=== PATIENT | male | born 1950 | race Caucasian/White ===

== ENCOUNTER → 2016-09-27 | Outpatient (CLI) | payer MEDICARE, OTHER | LOC: RAD 09:22 | PROVIDERS: ATTEND Physician Assistant | DX: R47.02 Dysphasia (principal) | CPT/HCPCS: 74220 ==

== ENCOUNTER 2016-10-18 09:45 | Day surgery (SDC) | payer MEDICARE, OTHER ==
[~2016-10-18 09:45] MED LIST: KETOROLAC TROMETHAMINE 0.45% 4 DROP/0.4 ML DROPERETTE OD PRN
[2016-10-18] MEDS: CYCLOPENTOLATE 0.2%/PHENYLEPHRINE 1% OPH SOLN 2 ML OD PRN ×3 (10:55→11:24)
[2016-10-18] MEDS: TROPICAMIDE 1% OPH SOLN 3 ML OD PRN ×3 (10:56→11:25)
[2016-10-18] MEDS: BESIFLOXACIN HCL 0.6% OPH SUSP 5 ML BOTTLE OD PRN ×3 (10:57→12:01)
[2016-10-18] MEDS: TETRACAINE HCL 0.5% OPH SOLN 2 ML OD PRN ×3 (10:59→11:35)
[2016-10-18] MEDS ORDERED: MIDAZOLAM 2 MG/2 ML INJ ONE (11:09)
[2016-10-18] MEDS ORDERED: FENTANYL CITRATE INJ/PF 100 MCG/2 ML AMPUL ONE (11:09)
[2016-10-18] MEDS ORDERED: EPINEPHRINE INJ/PF 1 MG/1 ML AMPULE ONE (11:09)
[2016-10-18] MEDS ORDERED: LIDOCAINE 1% INJ-PF (10 MG/ML) 30 ML SDV ONE (11:10)
[2016-10-18] MEDS ORDERED: CHONDR SU A NA/HYALUR INTRAOC KIT (SURGICARE) ONE (11:10)
[2016-10-18] MEDS ORDERED: PHENYLEPHRINE/KETOROLAC 1%-0.3% 4 ML VIAL ONE (11:15)
--- NOTE | 2016-10-18 13:08 | [facility] OPERATIVE REPORT E ---
[facility] Operative Report NAME: EDUARDO HAWK AGE: 66Y DATE OF SURGERY: 10/18/2016 ROOM: PREOPERATIVE DIAGNOSES: 1. Cataract, right eye. 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 POSTOPERATIVE DIAGNOSES: 1. Cataract, right eye. 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 OPERATION: Complex cataract extraction with use of a Malyugin ring due to a very miotic pupil. SURGEON: DAMIR REEVES M.D. ANESTHESIA: Topical. PROCEDURE: After obtaining appropriate consent, the patient's right eye was prepped and draped in sterile fashion as well as the surgeon in a sterile manner and cataract surgery was started. First a paracentesis blade was used to make a small side-port incision. Viscoelastic was used to inflate the anterior chamber. Next a 2.4 mm incision was made with the paracentesis blade. A continuous capsulorrhexis incision was made using a cystotome and Utrata forceps. Following this hydrodissection was carried out to make the lens fully loose and mobile and it was rotated 90 degrees. Following this, a osgkxy-xnq-krqhybb technique was used to phacoemulsify the lens with a CDE of 4.13. The remaining cortex was removed with irrigation/aspiration. Provisc was instilled into the capsular bag to inflate the bag. A SN60WF, 23.0 diopter lens was placed. The remaining viscoelastic material was removed with irrigation/aspiration. Following this, a 10-0 nylon suture was used to close the incision and it was found to be watertight. Vigamox was instilled in the eye and a protective shield was placed over the eye. The patient returned to the postoperative recovery in stable condition. Prior to making the capsulorrhexis, a Malyugin ring was inserted due to a very miotic pupil. This was removed at the end of the case. DICTATING PHYSICIAN: DAMIR REEVES M.D. [id number] PHY#: [id number] ID: [id number] JOB#: [id number] ACCT: [id number] cc:DAMIR REEVES M.D. >
--- NOTE | 2016-10-18 13:10 | [facility] DISCHARGE SUMMARY E ---
[facility] Discharge Summary NAME: EDUARDO HAWK AGE: 66Y ADMITTED: 10/18/2016 DISCHARGED: 10/18/2016 HOSPITAL COURSE: This is a 66-year-old male who underwent cataract extraction of the right eye, complex, requiring a Malyugin ring due to a very miotic pupil. DIAGNOSIS: 1. Cataract, right eye. 2. Pupil miosis, right eye. INDICATIONS: He underwent surgery because he was having difficulty driving at night secondary to headlights having significant glare. DISCHARGE INSTRUCTIONS: He should be on a regular diet. No bending at his waist. No heavy lifting. He should use his Besivance, Ilevro, and Durezol at 3 p.m. and 8 p.m. and sleep with a rigid shield. I will see him for his 1 day postoperative tomorrow. DICTATING PHYSICIAN: DAMIR REEVES M.D. [id number] PHY#: [id number] ID: [id number] JOB#: [id number] ACCT: [id number] cc:DAMIR REEVES M.D. >
== END 2016-10-18 12:46 | disposition home or self-care (01) ==
LOC: SC 09:45
PROVIDERS: ATTEND Internal Medicine
PROC: 08RJ3JZ Replacement of Right Lens with Synthetic Substitute, Percutaneous Approach (ICD-10-PCS; principal; 2016-10-18 11:30)
DX: H25.11 Age-related nuclear cataract, right eye (principal); H57.03 Miosis; I10 Essential (primary) hypertension; E78.00 Pure hypercholesterolemia, unspecified; M19.90 Unspecified osteoarthritis, unspecified site; I50.9 Heart failure, unspecified; Z87.891 Personal history of nicotine dependence; Z85.46 Personal history of malignant neoplasm of prostate; Z88.0 Allergy status to penicillin; Z88.5 Allergy status to narcotic agent; Z88.4 Allergy status to anesthetic agent; Z79.82 Long term (current) use of aspirin; Z79.899 Other long term (current) drug therapy; Z86.14 Personal history of Methicillin resistant Staphylococcus aureus infection
CPT/HCPCS: 66982; V2632; J2250; J3490 ×2; A9270; J0171; J3010; C9447; 142

== ENCOUNTER 2016-11-08 10:50 | Day surgery (SDC) | payer MEDICARE, OTHER ==
[~2016-11-08 10:50] MED LIST changes: -KETOROLAC TROMETHAMINE 0.45% 4 DROP/0.4 ML DROPERETTE OD PRN; +KETOROLAC TROMETHAMINE 0.45% 4 DROP/0.4 ML DROPERETTE OS PRN
[2016-11-08] MEDS ORDERED: PHENYLEPHRINE/KETOROLAC 1%-0.3% 4 ML VIAL ONE (11:32)
[2016-11-08] MEDS ORDERED: LIDOCAINE 1% INJ-PF (10 MG/ML) 30 ML SDV ONE (11:32)
[2016-11-08] MEDS ORDERED: CHONDR SU A NA/HYALUR INTRAOC KIT (SURGICARE) ONE (11:32)
[2016-11-08] MEDS: TETRACAINE HCL 0.5% OPH SOLN 2 ML OS PRN ×3 (11:50→12:45)
[2016-11-08] MEDS: TROPICAMIDE 1% OPH SOLN 3 ML OS PRN ×3 (11:51→12:12)
[2016-11-08] MEDS: CYCLOPENTOLATE 0.2%/PHENYLEPHRINE 1% OPH SOLN 2 ML OS PRN ×3 (11:51→12:12)
[2016-11-08] MEDS: BESIFLOXACIN HCL 0.6% OPH SUSP 5 ML BOTTLE OS PRN ×3 (11:52→13:13)
[2016-11-08] MEDS ORDERED: MIDAZOLAM 2 MG/2 ML INJ ONE (12:35)
--- NOTE | 2016-11-09 04:03 | DISCHARGE SUMMARY E ---
Discharge Summary NAME: EDUARDO HAWK : 1950 AGE: 66Y ADMITTED: 11/08/2016 DISCHARGED: 11/08/2016 HOSPITAL COURSE: This is a 66-year-old male who underwent cataract extraction of his left eye. DIAGNOSIS: CATARACT, LEFT EYE. He underwent surgery because he was having difficulty seeing road signs clearly with driving. DISCHARGE INSTRUCTIONS: He should be on a regular diet. No bending at his waist, no heavy lifting. He should use Besivance, Ilevro, and Durezol at 3 p.m. and 8 p.m. and sleep with a rigid shield. I will see him for his 1-day postoperative tomorrow. DICTATING PHYSICIAN: DAMIR REEVES M.D. [id number] PHY#: [id number] ID: [id number] JOB#: [id number] ACCT: [id number] cc:DAMIR REEVES M.D. >
--- NOTE | 2016-11-09 04:03 | [facility] OPERATIVE REPORT E ---
[facility] Operative Report NAME: EDUARDO HAWK AGE: 66Y DATE OF SURGERY: 11/08/2016 ROOM: PREOPERATIVE DIAGNOSIS: CATARACT, LEFT EYE. POSTOPERATIVE DIAGNOSIS: CATARACT, LEFT EYE. OPERATION: Cataract extraction with intraocular lens implant of the left eye. SURGEON: DAMIR REEVES M.D. ANESTHESIA: Topical. TISSUE REMOVED OR ALTERED: PROCEDURE: After obtaining appropriate consent, the patient's left eye was prepped and draped in sterile fashion as well as the surgeon in a sterile manner and cataract surgery was started. First a paracentesis blade was used to make a small side-port incision. Viscoelastic was used to inflate the anterior chamber. Next a 2.4 mm incision was made with the paracentesis blade. A continuous capsulorrhexis incision was made using a cystotome and Utrata forceps. Following this hydrodissection was carried out to make the lens fully loose and mobile and it was rotated 90 degrees. Following this, a cepxda-qlc-qegidil technique was used to phacoemulsify the lens with a CDE of 5.08. The remaining cortex was removed with irrigation/aspiration. Provisc was instilled into the capsular bag to inflate the bag. A SN60WF, 22.0 diopter lens was placed. The remaining viscoelastic material was removed with irrigation/aspiration. Following this, a 10-0 nylon suture was used to close the incision and it was found to be watertight. Vigamox was instilled in the eye and a protective shield was placed over the eye. The patient returned to the postoperative recovery in stable condition. DICTATING PHYSICIAN: DAMIR REEVES M.D. [id number] PHY#: [id number] ID: [id number] JOB#: [id number] ACCT: [id number] cc:DAMIR REEVES M.D. >
--- NOTE | 2016-11-10 19:38 | [facility] OPERATIVE REPORT E ---
[facility] Operative Report NAME: EDUARDO HAWK AGE: 66Y DATE OF SURGERY: ROOM: ADDENDUM PREOPERATIVE DIAGNOSIS: 1. Cataract of the left eye. 2. Pupil myosis. PROCEDURE PERFORMED Complex cataract extraction with use of a Malyugin ring due to a very myotic pupil. OPERATIVE NOTES Prior to making the capsulorhexis, a Malyugin ring was inserted. This was removed at the end of the case. It was inserted due to poor pupillary dilation or myosis. DISCHARGE SUMMARY 1. Cataract left eye. 2. Pupil myosis of the left eye. DICTATING PHYSICIAN: DAMIR REEVES M.D. [id number] PHY#: [id number] ID: [id number] JOB#: [id number] ACCT: [id number] cc:DAMIR REEVES M.D. >
== END 2016-11-08 13:56 | disposition home or self-care (01) ==
LOC: SC 10:50
PROVIDERS: ATTEND Internal Medicine
PROC: 08RK3JZ Replacement of Left Lens with Synthetic Substitute, Percutaneous Approach (ICD-10-PCS; principal; 2016-11-08 12:00)
DX: H25.89 Other age-related cataract (principal); H57.03 Miosis; Z96.1 Presence of intraocular lens
CPT/HCPCS: 66982; V2632; J2250; J3490 ×2; A9270; C9447; 142

== ENCOUNTER 2016-11-18 11:30 | Emergency (ER) | payer MEDICARE, OTHER ==
[2016-11-18] MEDS ORDERED: ASPIRIN 81 MG TABLET, CHEWABLE PO ONE (11:48)
--- NOTE | 2016-11-18 11:48 | ER Document Report ---
ED Medical Screen (RME) - General Stated Complaint: CHEST PAIN/TROUBLE BREATHING Notes: patient states he woke up with jaw pain and SOB, chest pain. took a nitro with minimal relief. states his chest feels like a pressure, SOB and feels like he cant catch his breath. denies any recent head cold. previous HI with stent x1 I have greeted and performed a rapid initial assessment of this patient. A comprehensive ED assessment and evaluation of the patient, analysis of test results and completion of the medical decision making process will be conducted by additional ED providers. TRAVEL OUTSIDE OF THE [place] IN LAST 30 DAYS: No - Related Data Allergies/Adverse Reactions: morphine [Morphine] Allergy (Verified 10/06/14 11:10) Penicillins Allergy (Verified 10/06/14 11:10) procaine HCl [From Novocain] Allergy (Verified 10/17/16 10:04) Low BP Past Medical History - Past Medical History Cardiac Medical History: Reports: Hx Congestive Heart Failure, Hx Hypercholesterolemia, Hx Hypertension Denies: Hx Heart Attack Pulmonary Medical History: Denies: Hx Asthma, Hx Tuberculosis Neurological Medical History: Reports: Hx Migraine. Denies: Hx Cerebrovascular Accident, Hx Seizures Malignancy Medical History: Reports Hx Prostate Cancer GI Medical History: Denies: Hx Hepatitis, Hx Hiatal Hernia, Hx Ulcer Musculoskeltal Medical History: Reports Hx Arthritis Infectious Medical History: Denies: Hx Hepatitis Past Surgical History: Reports: Hx Cardiac Surgery, Hx Cholecystectomy, Hx Coronary Stent. Denies: Hx Open Heart Surgery - STENT 2011, Hx Pacemaker - Immunizations Hx Diphtheria, Pertussis, Tetanus Vaccination: No Physical Exam - Vital signs Vitals: Temp Pulse Resp BP Pulse Ox 97.5 F 64 22 H 121/70 97 11/18/16 11:44 11/18/16 11:44 11/18/16 11:44 11/18/16 11:44 11/18/16 11:44 Course - Vital Signs Vital signs: Temp Pulse Resp BP Pulse Ox 97.5 F 64 22 H 121/70 97 11/18/16 11:44 11/18/16 11:44 11/18/16 11:44 11/18/16 11:44 11/18/16 11:44
[2016-11-18 13:39] LABS: ALANINE AMINOTRANSFERASE 78 U/L (21-72); ALBUMIN 4.3 g/dL (3.5-5.0); ALKALINE PHOSPHATASE 52 U/L (38-126); ANION GAP 13 (5-19); ASPARTATE AMINO TRANSFERASE 65 U/L (17-59); BILIRUBIN,TOTAL 0.9 mg/dL (0.2-1.3); BLOOD UREA NITROGEN 23 mg/dL (7-20); CALCIUM 9.8 mg/dL (8.4-10.2); CARBON DIOXIDE 23 mmol/L (22-30); CHLORIDE 106 mmol/L (98-107); CREATINE KINASE 33 U/L (55-170); CREATININE RESULT 1.07 mg/dL (0.52-1.25); GLUCOSE 137 mg/dL (75-110); POTASSIUM 4.2 mmol/L (3.6-5.0); SODIUM 142.4 mmol/L (137-145); TOTAL PROTEIN 7.1 g/dL (6.3-8.2)
[2016-11-18 13:40] LABS: ABSOLUTE EOSINOPHILS # (AUTO) 0.2 10^3/uL (0.0-0.6); ABSOLUTE MONOCYTES (AUTO) 0.5 10^3/uL (0.1-1.4); ABSOLUTE NEUT (AUTO) 2.9 10^3/uL (1.7-8.2); BASOPHILS % (AUTO) 0.8 % (0-2); EOSINOPHILS % (AUTO) 3.1 % (0-6); HEMATOCRIT 40.3 % (37.9-51.0); HEMOGLOBIN 14.6 g/dL (13.5-17.0); HGB HCT DIFFERENCE 3.5; LYMPHOCYTES % (AUTO) 35.8 % (13-45); MEAN CORPUSCULAR HGB CONC 36.1 g/dL (32.0-36.0); MEAN CORPUSCULAR VOLUME 89 fl (80-97); MONOCYTES % (AUTO) 8.5 % (3-13); RED BLOOD COUNT 4.55 10^6/uL (4.35-5.55); RED CELL DISTRIBUTION WIDTH 13.2 % (11.5-14.0); SEGMENTED NEUTROPHILS % (AUTO) 51.8 % (42-78); WHITE BLOOD COUNT 5.6 10^3/uL (4.0-10.5)
[2016-11-18 13:49] LABS: CREATINE KINASE MB < 0.22 ng/mL (<4.55); TROPONIN I < 0.012 ng/mL
[2016-11-18] MEDS ORDERED: NORMAL SALINE 1000 ML 1,000 ML IV ONE (13:49)
[2016-11-18] MEDS ORDERED: HYDROMORPHONE HCL INJ/PF 2 MG/ML AMPULE IV ONE (13:50)
[2016-11-18] MEDS ORDERED: ONDANSETRON HCL INJ/PF 4 MG/2 ML SDV IV ONE ×2 (13:51→16:30)
--- NOTE | 2016-11-18 14:01 | ER Document Report ---
ED General - General Chief Complaint: Chest Pain Stated Complaint: CHEST PAIN/TROUBLE BREATHING Mode of Arrival: Ambulatory Information source: Patient Notes: This is a 66-year-old male who presents to the emergency department for evaluation of chest pain. Patient states that he woke at about 8 AM this morning with bilateral jaw pain right greater than left. He also felt short of breath. Upon getting up he then developed substernal chest pain and pressure. He took a sublingual nitroglycerin at about 8:30 and states that his pain was only minimally relieved. Throughout the morning his chest pain intensified and he did take 2 more nitroglycerin with little effect on his pain. He has a history of prior coronary artery disease and a cardiac stent in 2011 and states that this pain feels very similar. Currently he has substernal chest pressure radiating straight through to his back and up into his jaw. He continues to feel short of breath and nauseated but has not vomited. He rates his current pain at 7/10. He states that he did take a full dose aspirin earlier today. 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 He reports a stress test in September of this year done at [facility] which he states was normal. TRAVEL OUTSIDE OF THE [place] IN LAST 30 DAYS: No - Related Data Allergies/Adverse Reactions: morphine [Morphine] Allergy (Verified 11/18/16 11:46) Penicillins Allergy (Verified 11/18/16 11:46) procaine HCl [From Novocain] Allergy (Verified 11/18/16 11:46) Low BP Past Medical History - General Information source: Patient - Social History Smoking Status: Former Smoker Chew tobacco use (# tins/day): No Frequency of alcohol use: Occasional Drug Abuse: None Family History: Hypertension Patient has suicidal ideation: No Patient has homicidal ideation: No - Past Medical History Cardiac Medical History: Reports: Hx Congestive Heart Failure, Hx DVT, Hx Hypercholesterolemia, Hx Hypertension, Hx Pulmonary Embolism Denies: Hx Heart Attack Pulmonary Medical History: Denies: Hx Asthma, Hx Tuberculosis Neurological Medical History: Reports: Hx Migraine. Denies: Hx Cerebrovascular Accident, Hx Seizures Renal/ Medical History: Denies: Hx Peritoneal Dialysis Malignancy Medical History: Reports Hx Prostate Cancer GI Medical History: Denies: Hx Hepatitis, Hx Hiatal Hernia, Hx Ulcer Musculoskeltal Medical History: Reports Hx Arthritis Infectious Medical History: Denies: Hx Hepatitis Past Surgical History: Reports: Hx Cardiac Surgery, Hx Cholecystectomy, Hx Coronary Stent. Denies: Hx Open Heart Surgery - STENT 2012, Hx Pacemaker - Immunizations Hx Diphtheria, Pertussis, Tetanus Vaccination: No Hx Pneumococcal Vaccination: 06/02/11 Review of Systems - Review of Systems Constitutional: No symptoms reported. denies: Chills, Fever EENT: No symptoms reported Cardiovascular: See HPI Respiratory: See HPI. denies: Cough Gastrointestinal: See HPI, Nausea. denies: Abdominal pain, Vomiting Genitourinary: No symptoms reported Musculoskeletal: No symptoms reported Neurological/Psychological: No symptoms reported Physical Exam - Vital signs Vitals: Temp Pulse Resp BP Pulse Ox 97.5 F 64 22 H 121/70 97 11/18/16 11:44 11/18/16 11:44 11/18/16 11:44 11/18/16 11:44 11/18/16 11:44 - Notes Notes: PHYSICAL EXAMINATION: GENERAL: Anxious-appearing adult male who is pleasant and conversant. No acute distress. HEAD: Atraumatic, normocephalic. EYES: Pupils equal round and reactive to light, extraocular movements intact, sclera anicteric, conjunctiva are normal. ENT: nares patent, oropharynx clear without exudates. Moist mucous membranes. NECK: Normal range of motion, supple without lymphadenopathy LUNGS: Breath sounds clear to auscultation bilaterally and equal. No wheezes rales or rhonchi. HEART: Regular rate and rhythm without murmurs ABDOMEN: Soft, nontender, normoactive bowel sounds. No guarding, no rebound. No masses appreciated. EXTREMITIES: Normal range of motion, no pitting or edema. NEUROLOGICAL: Cranial nerves grossly intact. Normal speech. No gross focal motor or sensory deficits appreciated. PSYCH: Somewhat anxious affect. SKIN: Warm, Dry, normal turgor, no rashes or lesions noted. Course - Re-evaluation Re-evalutation: 11/18/16 14:00 EKG shows no signs of ischemia and first troponin is negative after more than 5 hours of consistent pain. Given patient's prior history of PE and concerning symptoms of pain radiating into jaw and back we'll obtain CT angiogram to rule out PE versus dissection. At this time patient is not tachycardic, or hypertensive. 11/18/16 15:38 CT angiogram negative for PE, dissection, aneurysm, or infiltrate. Troponin is negative. Patient's pain is much improved after Dilaudid. However, given his history of prior cardiac stent and the fact that this pain is so similar to his prior cardiac pain, I do not feel patient is appropriate for discharge at this time. He did have a stress test 2 months ago so at this point patient is in need of cardiac catheterization to identify any cardiac etiology of this chest pain. I discussed the case with Dereck at [facility] who accepts patient in transfer for further evaluation. Patient is comfortable with this plan, all questions were answered. 11/18/16 16:23 - Vital Signs Vital signs: Temp Pulse Resp BP Pulse Ox 97.5 F 64 12 128/72 H 100 11/18/16 11:44 11/18/16 11:44 11/18/16 15:00 11/18/16 15:00 11/18/16 15:00 - Laboratory Result Diagrams: 11/18/16 12:41 11/18/16 12:41 Laboratory results interpreted by me: 11/18/16 11/18/16 12:41 12:41 [facility] H BUN 23 H Glucose 137 H AST 65 H ALT 78 H Creatine Kinase 33 L Discharge - Discharge Clinical Impression: Acute coronary syndrome Chest pain Qualifiers: Chest pain type: unspecified Qualified Code(s): R07.9 - Chest pain, unspecified Condition: Stable Disposition: [facility] Referrals: JOSE TOLEDO PA-C [Primary Care Provider] - Follow up as needed
[2016-11-18] MEDS ORDERED: NITROGLYCERIN 2% OINTMENT 1 GM PACKET TP ONE (15:16)
[2016-11-18] MEDS ORDERED: ENOXAPARIN SODIUM INJ 100 MG/1 ML DISP.SYRIN SUBCUT SCH (15:45)
[2016-11-18 17:32] VITALS: BP 126/75
--- NOTE | 2016-11-19 13:39 | EKG REPORT ---
SEVERITY:- BORDERLINE ECG - SINUS RHYTHM PROBABLE LEFT ATRIAL ABNORMALITY : Confirmed by: Alan Mays MD 19-Nov-2016 13:38:13
== END 2016-11-18 17:47 | disposition short-term general hospital (02) ==
LOC: ER 11:30
DX: I24.9 Acute ischemic heart disease, unspecified (principal); R07.9 Chest pain, unspecified; R06.02 Shortness of breath; R68.84 Jaw pain; I25.10 Atherosclerotic heart disease of native coronary artery without angina pectoris; Z87.891 Personal history of nicotine dependence
CPT/HCPCS: 93005; 96376; 99285; 96372; 96374; 96375; 36415; 82553; 82550; 85025; 80053; 84484; 71010; 71275; 93010; A9270 ×2; J1170; J2405; J7030; J1650

== ENCOUNTER 2019-03-29 19:13 | Emergency (ER) | payer MEDICARE, OTHER ==
[2019-03-29 20:04] LABS: ABSOLUTE EOSINOPHILS # (AUTO) 0.2 10^3/uL (0.0-0.6); ABSOLUTE LYMPHOCYTES (AUTO) 1.5 10^3/uL (0.5-4.7); ABSOLUTE MONOCYTES (AUTO) 0.6 10^3/uL (0.1-1.4); ABSOLUTE NEUT (AUTO) 3.3 10^3/uL (1.7-8.2); BASOPHILS % (AUTO) 0.5 % (0-2); EOSINOPHILS % (AUTO) 3.1 % (0-6); HEMATOCRIT 38.3 % (37.9-51.0); HEMOGLOBIN 13.7 g/dL (13.5-17.0); LYMPHOCYTES % (AUTO) 26.6 % (13-45); MEAN CORPUSCULAR HEMOGLOBIN 31.8 pg (27.0-33.4); MEAN CORPUSCULAR HGB CONC 35.8 g/dL (32.0-36.0); MEAN CORPUSCULAR VOLUME 89 fl (80-97); PLATELET COUNT 204 10^3/uL (150-450); RED BLOOD COUNT 4.31 10^6/uL (4.35-5.55); RED CELL DISTRIBUTION WIDTH 13.2 % (11.5-14.0); SEGMENTED NEUTROPHILS % (AUTO) 59.8 % (42-78); TOTAL CELLS COUNTED % (AUTO) 100 %; WHITE BLOOD COUNT 5.5 10^3/uL (4.0-10.5)
--- NOTE | 2019-03-29 20:15 | RADIOLOGY REPORT (SQ) ---
EXAM DESCRIPTION: XR CHEST 1 VIEW COMPLETED DATE/TME: 03/29/2019 19:17 CLINICAL HISTORY: 69 years Male BED 11 CP COMPARISON: None. FINDINGS: The cardiomediastinal silhouette appears unremarkable. No consolidating infiltrates or pleural effusions. No pneumothorax. IMPRESSION: No acute abnormality is identified.
[2019-03-29 20:25] LABS: ALANINE AMINOTRANSFERASE 67 U/L (21-72); ALBUMIN 4.2 g/dL (3.5-5.0); ALKALINE PHOSPHATASE 38 U/L (38-126); ANION GAP 12 (5-19); ASPARTATE AMINO TRANSFERASE 53 U/L (17-59); BILIRUBIN,DIRECT 0.2 mg/dL (0.0-0.4); BILIRUBIN,TOTAL 0.6 mg/dL (0.2-1.3); BLOOD UREA NITROGEN 21 mg/dL (7-20); CALCIUM 9.1 mg/dL (8.4-10.2); CARBON DIOXIDE 22 mmol/L (22-30); CHLORIDE 105 mmol/L (98-107); CREATINE KINASE 48 U/L (55-170); GLUCOSE 169 mg/dL (75-110); POTASSIUM 3.9 mmol/L (3.6-5.0); TOTAL PROTEIN 6.7 g/dL (6.3-8.2)
[2019-03-29 20:42] LABS: CREATINE KINASE MB 0.65 ng/mL (<4.55)
--- NOTE | 2019-03-29 20:44 | ER Document Report ---
ED Cardiac - General Chief Complaint: Chest Pain Stated Complaint: CHEST PAIN Time Seen by Provider: 03/29/19 20:25 Primary Care Provider: ALICIA KHAN MD [NO LOCAL MD] - Follow up as needed JASKARAN CORDOVA NP [Primary Care Provider] - Follow up as needed Mode of Arrival: Ambulatory Information source: Patient Notes: Patient is a 69-year-old male presented to the emergency department chief complaint of chest pain that began yesterday. Patient reports pain is in his mid sternum. He does report that he also has left arm pain but states that he typically has left arm pain related to some neck problems that he is having with nerve involvement. He reports that one chest pain first started yesterday he was having shortness of breath with chest pain while doing yard work. He states he took sublingual nitroglycerin x2 and it caused complete relief. Today he states he was doing yard work again around 6 PM when he developed shortness of breath and midsternal chest pain. He reports that he had mild associated nausea. He reports he took sublingual nitroglycerin again with no relief. He also reports he took 325 of aspirin. He does report history of CHF and one stent placement in 2016. He states that he takes Coreg, lisinopril and aspirin on a daily basis. Currently he does report chest pain 09/06. TRAVEL OUTSIDE OF THE [place] IN LAST 30 DAYS: No - Related Data Allergies/Adverse Reactions: morphine [Morphine] Allergy (Verified 11/18/16 11:46) Penicillins Allergy (Verified 11/18/16 11:46) procaine HCl [From Novocain] Allergy (Verified 11/18/16 11:46) Low BP Past Medical History - General Information source: Patient - Social History Smoking Status: Former Smoker Frequency of alcohol use: Occasional Drug Abuse: None Family History: Hypertension - Past Medical History Cardiac Medical History: Reports: Hx Congestive Heart Failure, Hx DVT, Hx Hypercholesterolemia, Hx Hypertension, Hx Pulmonary Embolism Denies: Hx Heart Attack Pulmonary Medical History: Denies: Hx Asthma, Hx Tuberculosis Neurological Medical History: Reports: Hx Migraine. Denies: Hx Cerebrovascular Accident, Hx Seizures Renal/ Medical History: Denies: Hx Peritoneal Dialysis Malignancy Medical History: Reports Hx Prostate Cancer GI Medical History: Denies: Hx Hepatitis, Hx Hiatal Hernia, Hx Ulcer Musculoskeletal Medical History: Reports Hx Arthritis Infectious Medical History: Denies: Hx Hepatitis Past Surgical History: Reports: Hx Cardiac Surgery, Hx Cholecystectomy, Hx Coronary Stent. Denies: Hx Open Heart Surgery - STENT 2011, Hx Pacemaker - Immunizations Hx Diphtheria, Pertussis, Tetanus Vaccination: No Hx Pneumococcal Vaccination: 06/02/11 Review of Systems - Review of Systems Constitutional: No symptoms reported EENT: No symptoms reported Cardiovascular: Chest pain, Palpitations Respiratory: Short of breath Gastrointestinal: Nausea Genitourinary: No symptoms reported Male Genitourinary: No symptoms reported Musculoskeletal: No symptoms reported Skin: No symptoms reported Hematologic/Lymphatic: No symptoms reported Neurological/Psychological: No symptoms reported Physical Exam - Vital signs Vitals: Temp 98.0 F 03/29/19 19:30 - Notes Notes: PHYSICAL EXAMINATION: GENERAL: Well-appearing, well-nourished and in no acute distress. HEAD: Atraumatic, normocephalic. EYES: Pupils equal round and reactive to light, extraocular movements intact, sclera anicteric, conjunctiva are normal. ENT: Nares patent, oropharynx clear without exudates. Moist mucous membranes. NECK: Normal range of motion, supple without lymphadenopathy LUNGS: Breath sounds clear to auscultation bilaterally and equal. No wheezes rales or rhonchi. HEART: Regular rate and rhythm without murmurs ABDOMEN: Soft, nontender, nondistended abdomen. No guarding, no rebound. No masses appreciated. Musculoskeletal: Normal range of motion, no pitting or edema. No cyanosis. NEUROLOGICAL: Cranial nerves grossly intact. Normal speech, normal gait. Normal sensory, motor exams PSYCH: Normal mood, normal affect. SKIN: Warm, Dry, normal turgor, no rashes or lesions noted. Course - Re-evaluation Re-evalutation: Laboratory 03/29/19 03/29/19 03/29/19 19:46 19:46 19:46 WBC 5.5 RBC 4.31 L Hgb 13.7 Hct 38.3 MCV 89 MCH 31.8 MCHC 35.8 RDW 13.2 Plt Count 204 Seg Neutrophils % 59.8 Lymphocytes % 26.6 Monocytes % 10.0 Eosinophils % 3.1 Basophils % 0.5 Absolute Neutrophils 3.3 Absolute Lymphocytes 1.5 Absolute Monocytes 0.6 Absolute Eosinophils 0.2 Absolute Basophils 0.0 Sodium 139.3 Potassium 3.9 Chloride 105 Carbon Dioxide 22 Anion Gap 12 BUN 21 H Creatinine 1.11 Est GFR ( Amer) > 60 Est GFR (Non-Af Amer) > 60 Glucose 169 H Calcium 9.1 Total Bilirubin 0.6 Direct Bilirubin 0.2 Neonat Total Bilirubin Not Reportable Neonat Direct Bilirubin Not Reportable Neonat Indirect Bili Not Reportable AST 53 ALT 67 Alkaline Phosphatase 38 Creatine Kinase 48 L CK-MB (CK-2) 0.65 Troponin I < 0.012 NT-Pro-B Natriuret Pep Total Protein 6.7 Albumin 4.2 03/29/19 03/29/19 19:46 23:19 WBC RBC Hgb Hct MCV MCH MCHC RDW Plt Count Seg Neutrophils % Lymphocytes % Monocytes % Eosinophils % Basophils % Absolute Neutrophils Absolute Lymphocytes Absolute Monocytes Absolute Eosinophils Absolute Basophils Sodium Potassium Chloride Carbon Dioxide Anion Gap BUN Creatinine Est GFR ( Amer) Est GFR (Non-Af Amer) Glucose Calcium Total Bilirubin Direct Bilirubin Neonat Total Bilirubin Neonat Direct Bilirubin Neonat Indirect Bili AST ALT Alkaline Phosphatase Creatine Kinase CK-MB (CK-2) Troponin I < 0.012 NT-Pro-B Natriuret Pep 134 Total Protein Albumin Chest X-Ray 03/29/19 19:17 IMPRESSION: No acute abnormality is identified. Labs as recorded above. Patient had initial negative troponin as well as a repeat delta troponin that was also negative. Patient did have chest pain here in the emergency department of a 09/06. This was resolved after administration of Toradol here in the emergency department. His EKG shows a sinus rhythm, rate of 65, QTc 400, no ST segment elevations or depressions, this EKG was reviewed by myself. There is no change from previous EKG on file from 2017. Extensive discussion was had with patient regarding possible observation so that patient could have a echocardiogram and stress test done. Patient does not want to stay in the hospital. Considering he did have 2 normal troponins and no change on his EKG I feel would be safe to send him home at this time. 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 He has an appointment with his primary care scheduled for Saturday. He assures me that he will call his motorcyles final inspector tomorrow to schedule an appointment for echocardiogram and stress test. Patient verbalizes understanding and agreement with plan, ED return precautions were discussed, patient verbalizes agreement with same. The patient's emergency department workup and current diagnosis were explained to the patient and or family. Follow-up instructions were provided. Medications if prescribed were discussed. Instructions for when to return to the emergency department including specific worrisome symptoms were discussed with the patient and/or family. - Vital Signs Vital signs: Temp Pulse Resp BP Pulse Ox 98 F 68 14 148/75 H 95 03/30/19 01:53 03/30/19 01:53 03/30/19 01:53 03/30/19 01:53 03/30/19 01:01 - Laboratory Result Diagrams: 03/29/19 19:46 03/29/19 19:46 Laboratory results interpreted by me: 03/29/19 03/29/19 19:46 19:46 RBC 4.31 L BUN 21 H Glucose 169 H Creatine Kinase 48 L Discharge - Discharge Clinical Impression: Chest pain Qualifiers: Chest pain type: unspecified Qualified Code(s): R07.9 - Chest pain, unspecified Condition: Stable Disposition: HOME, SELF-CARE Additional Instructions: You were seen today for chest pain. The exact cause of your pain is unclear. However, based on your cardiac enzyme testing, chest x-ray, and EKG it does not appear that it is from an immediately life-threatening cause at this time. Although your testing here is normal is critical that you follow-up with your primary care physician for continued evaluation of this chest pain and possible stress testing. I recommended you see your physician within the next 24-48 hours to be evaluated for consideration of a stress test. Please return to emergency department immediately if you have worsening of your chest pain, shortness of breath, vomiting, become unable to exert yourself due to pain or difficulty breathing, you pass out, or have any pain that radiates into your arms, jaw, or back. Please also return if you have any additional symptoms that are concerning to you. Referrals: JASKARAN CORDOVA NP [Primary Care Provider] - Follow up as needed ALICIA KHAN MD [NO LOCAL MD] - Follow up as needed
[2019-03-29 20:46] LABS: TROPONIN I < 0.012 ng/mL
[2019-03-29] MEDS ORDERED: ONDANSETRON HCL INJ/PF 4 MG/2 ML SDV IV ONE (21:12)
--- NOTE | 2019-03-29 21:51 | EKG REPORT ---
SEVERITY:- NORMAL ECG - SINUS RHYTHM : Confirmed by: Juli Dunlap 29-Mar-2019 21:50:55
[2019-03-29] MEDS ORDERED: KETOROLAC TROMETHAMINE INJ/PF 30 MG/1 ML SDV IV ONE (21:57)
[2019-03-30 01:56] VITALS: BP 148/75
== END 2019-03-30 01:53 | disposition home or self-care (01) ==
LOC: ER 19:13
DX: R07.9 Chest pain, unspecified (principal); I50.9 Heart failure, unspecified; E78.00 Pure hypercholesterolemia, unspecified; I11.0 Hypertensive heart disease with heart failure; Z86.711 Personal history of pulmonary embolism; Z88.0 Allergy status to penicillin; Z88.6 Allergy status to analgesic agent; Z86.718 Personal history of other venous thrombosis and embolism; Z90.49 Acquired absence of other specified parts of digestive tract
CPT/HCPCS: 93005; 99285; 96374; 96375; 36415; 82553; 82550; 85025; 80053; 84484; 83880; 71045; 93010; J1885; J2405

== ENCOUNTER → 2019-06-26 | Outpatient (CLI) | payer MEDICARE, OTHER ==
[~2019-06-26] MED LIST changes: +ALBUTEROL SULFATE 0.083% NEB 2.5 MG/3 ML AMPUL NEB ONE; -KETOROLAC TROMETHAMINE 0.45% 4 DROP/0.4 ML DROPERETTE OS PRN
--- NOTE | 2019-06-29 10:24 | Pulmonary Function Test ---
Pulmonary Function Test Date of Procedure:: 06/29/19 INDICATION:: Dyspnea Referring Provider: Dr. 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
== END ==
LOC: RT 07:04
PROVIDERS: ATTEND Physician Assistant
DX: R06.02 Shortness of breath (principal); R07.89 Other chest pain
CPT/HCPCS: 94060; A9270

== ENCOUNTER 2020-09-16 10:51 | Emergency (ER) | payer MEDICARE, OTHER ==
--- NOTE | 2020-09-16 11:49 | ER Document Report ---
ED Medical Screen (RME) - General Chief Complaint: Shortness Of Breath Stated Complaint: SHORTNESS OF BREATH Time Seen by Provider: 09/16/20 11:30 Primary Care Provider: JASKRAAN CORDOVA NP [Primary Care Provider] - Follow up as needed TRAVEL OUTSIDE OF THE [place] IN LAST 30 DAYS: No - HPI Notes: 09/16/20 11:44 70 year old male with a hx CHF, HTN, diabetes type 2, HDL, hx of CA with a stent in 2011 presents to the ER for evaluation of substernal chest pain with concurrent shortness of breath that started around 7 AM. Patient states he does have some radiation down his left arm and does feel pain between his shoulder blades. Does endorse some nausea and lightheadedness as well as dizziness, denies any abdominal pain, vomiting, headache, vision changes. Patient does take 325 baby aspirin, he did take it this morning, he does follow with Dr. Matta, ball sorter at [facility]. Reports his last stress test he believes was in 2015 but he is unsure about the exact date. Former smoker. Is not currently on any diuretics as far as he can recall I have greeted and performed a rapid initial assessment of this patient. A comprehensive ED assessment and evaluation of the patient, analysis of test results and completion of the medical decision making process will be conducted by additional ED providers. PHYSICAL EXAMINATION: GENERAL: Well-appearing, well-nourished and in no acute distress. CV: s1, s2 regular LUNGS: No respiratory distress Musculoskeletal: Normal range of motion NEUROLOGICAL: Normal speech, normal gait. SKIN: Warm, Dry, normal turgor, no rashes or lesions noted. The patient was evaluated during a global COVID-19 pandemic and that diagnosis was suspected/considered upon their initial presentation. Their evaluation, treatment and testing was consistent with current guidelines for patients who present with complaints or symptoms and may be related to COVID-19. - Related Data Allergies/Adverse Reactions: morphine [Morphine] Allergy (Verified 11/18/16 11:46) Penicillins Allergy (Verified 11/18/16 11:46) procaine HCl [From Novocain] Allergy (Verified 11/18/16 11:46) Low BP Past Medical History - Past Medical History Cardiac Medical History: Reports: Hx Congestive Heart Failure, Hx DVT, Hx Hypercholesterolemia, Hx Hypertension, Hx Pulmonary Embolism Denies: Hx Heart Attack Pulmonary Medical History: Denies: Hx Asthma, Hx Tuberculosis Neurological Medical History: Reports: Hx Migraine. Denies: Hx Cerebrovascular Accident, Hx Seizures Renal/ Medical History: Denies: Hx Peritoneal Dialysis Malignancy Medical History: Reports Hx Prostate Cancer GI Medical History: Denies: Hx Hepatitis, Hx Hiatal Hernia, Hx Ulcer Musculoskeltal Medical History: Reports Hx Arthritis Infectious Medical History: Denies: Hx Hepatitis Past Surgical History: Reports: Hx Cardiac Surgery, Hx Cholecystectomy, Hx Coronary Stent. Denies: Hx Open Heart Surgery - STENT 2011, Hx Pacemaker - Immunizations Hx Diphtheria, Pertussis, Tetanus Vaccination: No Physical Exam - Vital signs Vitals: Temp Pulse Resp BP Pulse Ox 97.7 F 62 18 166/83 H 98 09/16/20 11:17 09/16/20 11:17 09/16/20 11:17 09/16/20 11:17 09/16/20 11:17 Course - Vital Signs Vital signs: Temp Pulse Resp BP Pulse Ox 97.7 F 62 18 166/83 H 98 09/16/20 11:17 09/16/20 11:17 09/16/20 11:17 09/16/20 11:17 09/16/20 11:17 Doctor's Discharge - Discharge Referrals: JASKARAN CORDOVA NP [Primary Care Provider] - Follow up as needed
[2020-09-16 12:05] LABS: ABSOLUTE EOSINOPHILS # (AUTO) 0.2 10^3/uL (0.0-0.6); ABSOLUTE LYMPHOCYTES (AUTO) 1.7 10^3/uL (0.5-4.7); ABSOLUTE MONOCYTES (AUTO) 0.4 10^3/uL (0.1-1.4); ABSOLUTE NEUT (AUTO) 3.1 10^3/uL (1.7-8.2); BASOPHILS % (AUTO) 0.3 % (0-2); EOSINOPHILS % (AUTO) 2.8 % (0-6); HEMATOCRIT 41.9 % (37.9-51.0); HEMOGLOBIN 15.1 g/dL (13.5-17.0); LYMPHOCYTES % (AUTO) 32.1 % (13-45); MEAN CORPUSCULAR HEMOGLOBIN 31.6 pg (27.0-33.4); MEAN CORPUSCULAR HGB CONC 36.1 g/dL (32.0-36.0); MEAN CORPUSCULAR VOLUME 87 fl (80-97); MONOCYTES % (AUTO) 7.5 % (3-13); PLATELET COUNT 156 10^3/uL (150-450); RED BLOOD COUNT 4.79 10^6/uL (4.35-5.55); RED CELL DISTRIBUTION WIDTH 13.6 % (11.5-14.0); SEGMENTED NEUTROPHILS % (AUTO) 57.3 % (42-78); TOTAL CELLS COUNTED % (AUTO) 100 %; WHITE BLOOD COUNT 5.4 10^3/uL (4.0-10.5)
--- NOTE | 2020-09-16 12:08 | RADIOLOGY REPORT (SQ) ---
EXAM DESCRIPTION: CHEST SINGLE VIEW IMAGES COMPLETED DATE/TIME: 09/16/2020 12:00 pm REASON FOR STUDY: chest pain COMPARISON: 03/29/2019 EXAM PARAMETERS: NUMBER OF VIEWS: One view. TECHNIQUE: Single frontal radiographic view of the chest acquired. RADIATION DOSE: NA LIMITATIONS: None. FINDINGS: LUNGS AND PLEURA: No opacities, masses or pneumothorax. No pleural effusion. MEDIASTINUM AND HILAR STRUCTURES: No masses. Contour normal. HEART AND VASCULAR STRUCTURES: Heart normal in size. Normal vasculature. BONES: No acute findings. HARDWARE: Cholecystectomy clips. OTHER: No other significant finding. IMPRESSION: NO ACUTE RADIOGRAPHIC FINDING IN THE CHEST. TECHNICAL DOCUMENTATION: JOB ID: [id number] [employer]- All Rights Reserved Reading location - IP/workstation name: [email or web address]
[2020-09-16 12:30] LABS: ALBUMIN 4.5 g/dL (3.5-5.0); ALKALINE PHOSPHATASE 75 U/L (38-126); ANION GAP 12 (5-19); ASPARTATE AMINO TRANSFERASE 36 U/L (17-59); BILIRUBIN,DIRECT 0.1 mg/dL (0.0-0.4); BILIRUBIN,TOTAL 0.9 mg/dL (0.2-1.3); BLOOD UREA NITROGEN 15 mg/dL (7-20); CALCIUM 9.9 mg/dL (8.4-10.2); CARBON DIOXIDE 27 mmol/L (22-30); CHLORIDE 102 mmol/L (98-107); CREATINE KINASE 27 U/L (55-170); GLUCOSE 204 mg/dL (75-110); POTASSIUM 4.4 mmol/L (3.6-5.0); TOTAL PROTEIN 7.5 g/dL (6.3-8.2)
[2020-09-16 12:54] LABS: CREATINE KINASE MB 0.58 ng/mL (<4.55); NT PRO BNP 94 pg/mL (<125)
[2020-09-16 12:59] LABS: TROPONIN I < 0.012 ng/mL
[2020-09-16 17:23] VITALS: BP 164/95
--- NOTE | 2020-09-16 17:23 | ER Document Report ---
ED General - General Chief Complaint: Chest Pain Stated Complaint: SHORTNESS OF BREATH Time Seen by Provider: 09/16/20 11:30 Primary Care Provider: JASKARAN CORDOVA NP [Primary Care Provider] - Follow up as needed TRAVEL OUTSIDE OF THE [place] IN LAST 30 DAYS: No - HPI Notes: Patient is a 70-year-old male presents emergency department for evaluation of chest pain. He states he woke up and he did not have the pain. Is he went to go about his day he developed a discomfort in the center of his chest. He states he had some pain in his left arm as well, but he does have a "pinched nerve" that could be responsible for that. He also developed some pain later in the day between his shoulder blades. He has had back pain before as well. He has a history of coronary artery disease, states that this does not feel similar to the anginal pain that he has had in the past. He did feel dizzy at 1 point during the day, claims some mild intermittent shortness of breath, but denies any symptoms at this time. He has an appointment with his business development representative next month. The patient states that last month he was at his home in [place]. [place] without any sort of chest pain. He has been taking his medications as prescribed. - Related Data Allergies/Adverse Reactions: morphine [Morphine] Allergy (Verified 11/18/16 11:46) Penicillins Allergy (Verified 11/18/16 11:46) procaine HCl [From Novocain] Allergy (Verified 11/18/16 11:46) Low BP Home Medications: asa/lisinopril/lipitor/fish oil/prilosec/dilaudid prn/carvedilol/flomax/prostrate cancer med Past Medical History - General Information source: Patient - Social History Smoking Status: Former Smoker Frequency of alcohol use: Rare Drug Abuse: None Family History: Hypertension Patient has homicidal ideation: No - Past Medical History Cardiac Medical History: Reports: Hx Congestive Heart Failure, Hx DVT, Hx Hypercholesterolemia, Hx Hypertension, Hx Pulmonary Embolism Denies: Hx Heart Attack Pulmonary Medical History: Denies: Hx Asthma, Hx Tuberculosis Neurological Medical History: Reports: Hx Migraine. Denies: Hx Cerebrovascular Accident, Hx Seizures Endocrine Medical History: Reports: Hx Diabetes Mellitus Type 2 Renal/ Medical History: Denies: Hx Peritoneal Dialysis Malignancy Medical History: Reports Hx Prostate Cancer GI Medical History: Denies: Hx Hepatitis, Hx Hiatal Hernia, Hx Ulcer Musculoskeletal Medical History: Reports Hx Arthritis Infectious Medical History: Denies: Hx Hepatitis Past Surgical History: Reports: Hx Cardiac Surgery - stent 2011, Hx Cholecystectomy, Hx Coronary Stent, Hx Orthopedic Surgery - back. Denies: Hx Open Heart Surgery - STENT 2011, Hx Pacemaker - Immunizations Hx Diphtheria, Pertussis, Tetanus Vaccination: No Hx Pneumococcal Vaccination: 06/02/11 Review of Systems - Review of Systems Constitutional: No symptoms reported EENT: No symptoms reported Cardiovascular: See HPI Respiratory: See HPI Gastrointestinal: See HPI Genitourinary: No symptoms reported Musculoskeletal: See HPI Skin: No symptoms reported Neurological/Psychological: See HPI Physical Exam - Vital signs Vitals: Temp Pulse Resp BP Pulse Ox 97.7 F 62 18 166/83 H 98 09/16/20 11:17 09/16/20 11:17 09/16/20 11:17 09/16/20 11:17 09/16/20 11:17 - Notes Notes: Vital signs reviewed, please refer to chart. Head is normocephalic, atraumatic. Pupils equal round, reactive to light. Neck is supple without meningismus. Heart is regular rate and rhythm. Lungs are clear to auscultation bilaterally. Abdomen is soft, nontender, normoactive bowel sounds throughout. Extremities without cyanosis, clubbing. Posterior calves are nontender. Peripheral pulses are equal. Skin is warm and dry. Patient is awake, alert, neurological exam is nonfocal. Course - Re-evaluation Re-evalutation: 09/16/20 17:24 Patient presents to the emergency department for evaluation. He had laboratory investigations as ordered as through triage. EKG, imaging was ordered. Laboratory investigations revealed negative cardiac enzymes x2. No other significant abnormalities were noted. The patient's EKG is unchanged. The patient's pain is improved. He states himself that it does not feel like his anginal pain. He already has follow-up scheduled with his business development representative. I explained to him that I could not rule out coronary artery disease as the cause of his pain and he needs to follow-up very closely. I also encouraged him to return immediately to the ED if his pain returned. He voiced understanding. He is to return to the emergency department with worsening or new concerning symptoms of any sort. - Vital Signs Vital signs: Temp Pulse Resp BP Pulse Ox 97.7 F 62 18 166/83 H 98 09/16/20 11:17 09/16/20 11:17 09/16/20 11:17 09/16/20 11:17 09/16/20 11:17 - Laboratory Results Result Diagrams: 09/16/20 11:48 09/16/20 11:48 Laboratory Results Interpreted: 09/16/20 09/16/20 11:48 11:48 MCHC 36.1 H Glucose 204 H Creatine Kinase 27 L Critical Laboratory Results Reviewed: No Critical Results - Radiology Results Radiology Results Interpreted: 09/16/20 17:26 Chest X-Ray 09/16/20 11:38 IMPRESSION: NO ACUTE RADIOGRAPHIC FINDING IN THE CHEST. Critical Radiology Results Reviewed: No Critical Results - EKG Interpretation by Me Additional EKG results interpreted by me: 09/16/20 17:26 Sinus mechanism with a rate of 54 bpm. Normal axis and intervals. No acute ST changes concerning for ischemia or infarction. No significant change compared to prior study. Discharge - Discharge Clinical Impression: Chest pain Qualifiers: Chest pain type: unspecified Qualified Code(s): R07.9 - Chest pain, unspecified Condition: Stable Disposition: HOME, SELF-CARE Instructions: Chest Pain of Unclear Cause ([facility]) Additional Instructions: No clear cause was identified for your chest pain today. Your EKG showed no changes. Your cardiac enzymes were negative twice. This still cannot rule out heart disease as a cause of your pain. Please follow-up very closely with your business development representative, call his office to see if your appointment can be moved up. If your pain worsens or you develop new or concerning symptoms of any sort, please return immediately to the emergency department for reevaluation. Referrals: JASKARAN CORDOVA NP [Primary Care Provider] - Follow up as needed
--- NOTE | 2020-09-16 19:34 | EKG REPORT ---
SEVERITY:- NORMAL ECG - SINUS RHYTHM : Confirmed by: Tamika William MD 16-Sep-2020 19:33:33
== END 2020-09-16 17:33 | disposition home or self-care (01) ==
LOC: ER 10:51
DX: R07.9 Chest pain, unspecified (principal); R06.02 Shortness of breath; R42 Dizziness and giddiness; I50.9 Heart failure, unspecified; I11.0 Hypertensive heart disease with heart failure; E78.00 Pure hypercholesterolemia, unspecified; E11.9 Type 2 diabetes mellitus without complications; Z88.6 Allergy status to analgesic agent; Z88.0 Allergy status to penicillin; Z86.718 Personal history of other venous thrombosis and embolism; I25.2 Old myocardial infarction; Z90.49 Acquired absence of other specified parts of digestive tract
CPT/HCPCS: 36415; 71045; 80053; 82550; 82553; 83880; 84484; 85025; 93005; 93010; 99285